=== PATIENT | female | born 1965 | race Caucasian/White ===

== ENCOUNTER 2016-11-08 19:06 | Emergency (ER) | payer OTHER ==
[~2016-11-08] VITALS: Ht 165.1 cm; Wt 106.6 kg
[~2016-11-08 19:06] MED LIST: FIORICET 325 MG1 TAB PO; LABETALOL HYDR100 MG PO
--- NOTE | 2016-11-08 19:45 | ED GI/GU/ABDOMINAL COMPLAINT ---
History of Present Illness General Chief Complaint: General Adult Stated Complaint: PT HAS PAIN NEAR BELLY BUTTON AREA Source: patient Exam Limitations: no limitations Vital Signs & Intake/Output Vital Signs & Intake/Output Vital Signs Date Time Temp Pulse Resp B/P Pulse O2 O2 Flow FiO2 Ox Delivery Rate 11/08 2325 97.3 65 18 124/67 97 Room Air 11/08 2105 97.1 63 18 129/62 96 Room Air 11/08 1913 98.4 79 18 130/85 98 Room Air ED Intake and Output 11/09 0000 11/08 1200 Intake Total Output Total Balance Patient 235 lb Weight Allergies Coded Allergies: MDX - Morphine (MORPHINE) (HEADACHE 02/23/12) Reconcile Medications Acetaminophen/Butalbital/Caf (Fioricet 325 MG-50 MG-40 MG) 1 TAB TAB 1-2 TAB PO Q6H PRN HEADACHE Hydromorphone HCl (Dilaudid) 2 MG TABLET 1 TAB PO BIDP PRN PAIN LABETALOL HCL (Labetalol Hydrochloride) 100 MG TAB 1 TAB PO BID HTN Losartan/Hydrochlorothiazide (Losartan-Hctz 100-25 MG Tab) 100 MG-25 MG TABLET 1 TAB PO DAILY HTN (Reported) Omeprazole 40 MG CAPSULE.DR 1 CAP PO DAILY REFLUX (Reported) Ondansetron HCl (Zofran) 4 MG TABLET 1 TAB PO Q6-8P PRN NAUSEA Triage Note: PT STATES SHE IS HAVING ABD PAIN AROUND HER "BELLY BUTTON" AREA THAT STARTED A COUPLE OF DAYS BUT TODAY IT GOT WORSE. PT DOES HAVE HER APPENDICS. PT DENIES N/V/D LAST BM THIS AM NORMAL FOR HER. Triage Nurses Notes Reviewed? yes ? N Is pt currently ? No Onset: Gradual Duration: getting worse Timing: recent history Severity Numbers: 7 Radiation: no radiation Activities at Onset: none HPI: Patient is a 51-year-old female who presents emergency room with a 3 day history of gradual onset of periumbilical abdominal pain. Patient states that today the pain is more severe and localized to the right lower quadrant. Patient states that lumbar spine movements and palpation make worse. Last bowel movement was within the last 24 hours no blood no melena noted. Patient is able tolerate by mouth with worsening pain. Has nausea without emesis. Denies any fevers but does have chills. Denies any dysuria or hematuria vaginal bleeding vaginal discharge. (WINNIE HERNANDEZ) Past History Travel History Traveled to [place] past 21 day No Medical History Any Pertinent Medical History? see below for history Neurological: NONE EENT: NONE Cardiovascular: hypertension Respiratory: NONE Gastrointestinal: NONE Hepatic: NONE Renal: NONE Musculoskeletal: NONE Psychiatric: NONE Endocrine: NONE Blood Disorders: NONE Cancer(s): NONE History of MRSA: No History of VRE: No History of CDIFF: No Surgical History Surgical History: non-contributory Psychosocial History Who do you live with Family What is your primary language [place] Tobacco Use: Never used ETOH Use: occasional use Illicit Drug Use: denies illicit drug use Family History Hx Contributory? No (WINNIE HERNANDEZ) Review of Systems Review of Systems Constitutional: Reports: no symptoms. EENTM: Reports: no symptoms. Respiratory: Reports: no symptoms. Cardiovascular: Reports: no symptoms. GI: Reports: see HPI, abdominal pain, nausea. Genitourinary: Reports: no symptoms. Musculoskeletal: Reports: no symptoms. Skin: Reports: no symptoms. Neurological/Psychological: Reports: no symptoms. Hematologic/Endocrine: Reports: no symptoms. Immunologic/Allergic: Reports: no symptoms. All Other Systems: Reviewed and Negative (WINNIE HERNANDEZ) Physical Exam Physical Exam General Appearance: no apparent distress, alert, comfortable Gastrointestinal: normal bowel sounds, soft, PERIUMBILICAL AND RIGHT LOWER QUADRANT POINT TENDERNESS NOTED, NO REBOUND TENDERNESS NO PERITONEAL SIGNS Comments: HEENT: Normal EENT exam, Neck: Supple, no lymphadenopathy, normal range of motion without pain or tenderness Back: Nontender, no CVA tenderness. Cardiovascular: Regular rate and rhythms no murmurs rubs or gallops, normal JVP Respiratory: Chest nontender. No respiratory distress.breath sounds clear to auscultation bilaterally Extremity: No edema, no calf tenderness to palpation, normal and equal pulses. Neuro: Alert oriented x3, motor sensory normal, Skin: No appreciable rash on exposed skin, skin is warm and dry. Psych: Mood and affect is normal, memory and judgment is normal. Core Measures ACS in differential dx? No Severe Sepsis Present: No Septic Shock Present: No (WINNIE HERNANDEZ) Progress Differential Diagnosis: AAA, AMI, appendicitis, biliary colic, bowel obstruction , colon cancer, cholecystitis, diverticulitis, ectopic , endometritis, esophageal varices, gastritis, hepatitis, hernia, hemorrhoids, ischemic bowel, inflamm bowel dis, intrauterine , kidney stone, Bri-Haritha tear, ovarian cyst, ovarian torsion, pancreatitis, PID/cervicitis, peptic ulcer, PUD/ GERD, perforated viscous, SBO, threatened AB, UTI/pyelo Plan of Care: Orders Procedure Date/time Status LIPASE 11/08 1954 Complete LACTIC ACID 11/08 1954 Complete HUMAN BETA HCG SCREEN 11/08 1954 Complete C-REACTIVE PROTEIN 11/08 1954 Complete COMPREHENSIVE METABOLIC PANEL 11/08 1954 Complete CBC WITHOUT DIFFERENTIAL 11/08 1954 Complete AMYLASE 11/08 1954 Complete Laboratory Tests 11/08/16 2255: Lactic Acid Cancelled 11/08/16 2005: Anion Gap 12, Estimated GFR > 60, BUN/Creatinine Ratio 23.8, Glucose 95, Lactic Acid 1.1, Calcium 10.3 H, Total Bilirubin 0.9, AST 31, ALT 56 H, Alkaline Phosphatase 135 H, C-Reactive Prot, Quant < 0.5, Total Protein 7.6, Albumin 4.3 , Globulin 3.3, Albumin/Globulin Ratio 1.3, Amylase < 30 L, Lipase 89, Total Beta HCG NEGATIVE, CBC w Diff NO MAN DIFF REQ, RBC 4.93, MCV 86.5, MCH 29.6, RDW 13.8, MPV 9.4, Gran % 51.0, Lymphocytes % 37.1, Monocytes % 8.2, Eosinophils % 2.8, Basophils % 0.9, Absolute Granulocytes 4.8, Absolute Lymphocytes 3.5 H, Absolute Monocytes 0.8 H, Absolute Eosinophils 0.3, Absolute Basophils 0.1, PUBS MCHC 34.3 11/08/2016 9:06:11 PM reevaluation the patient, patient states that she had significant resolution of pain and complete resolution of nausea. Patient had no findings of appendicitis however patient did have umbilical hernia suspicion on CT scan. There are no signs at this time of incarceration or strangling hernia. I discussed CT scan results with patient and strongly advised her to not physical exertion herself and to follow-up with surgeon and she will comply. I then placed patient in Trendelenburg and reduced patient's umbilical hernia patient tolerated well. Discussed disposition with Dr. KELLY who agrees (BASIL CARLTON,WINNIE) Diagnostic Imaging: Viewed by Me: CT Scan. Radiology Impression: acute abnormality Initial ED EKG: none Comments: PATIENT: EDGARD MENDOSA PRESENT AGE: 51 PATIENT ACCOUNT NO: [id number] : 67 LOCATION: [facility] ORDERING PHYSICIAN: WINNIE CARLTON SERVICE DATE: 11/08/16 EXAM TYPE: CAT - CT ABD & PELVIS W IV CONTRAST CT ABDOMEN AND PELVIS WITH CONTRAST CLINICAL INFORMATION: Periumbilical pain to rule out hernia or appendicitis. COMPARISON: Previous abdominal studies cannot be retrieved at the time of dictation. TECHNIQUE: Multidetector volumetric imaging was performed of the abdomen and pelvis before and after the IV administration of 95 mL of Optiray 320 intravenous contrast. Sagittal and coronal reformatted images were obtained on the technologist's workstation. FINDINGS: The lung bases are clear. Cholecystectomy changes. There is diffuse hepatic steatosis. No focal liver lesions. The spleen, adrenal glands, and pancreas are normal. The kidneys exhibit symmetric nephrograms without evidence of hydronephrosis or nephrolithiasis. No focal renal lesions. The large and small bowel are normal in caliber without evidence of mechanical obstruction. No focal inflammatory changes adjacent to the large or the small bowel. The appendix is normal. There is no free air and there is no intra-abdominal free fluid. No mesenteric or retroperitoneal adenopathy. The pelvic viscera are normal. No pelvic adenopathy. No free fluid within the pelvis. There are no acute osseous abnormalities. There are postoperative changes following laminectomy and posterior instrumented lumbar interbody fusion at L4-L5. There is a small fat-containing umbilical hernia and there is mild nonspecific stranding of the fat within the hernia sac. IMPRESSION: - There is a small fat-containing umbilical hernia and there is mild nonspecific stranding of the fat within the hernia sac. There are no bowel loops within the hernia sac. - The appendix is normal. - Hepatic steatosis. - Cholecystectomy. (BASIL CARLTON,WINNIE) Departure Departure Disposition: HOME OR SELF CARE Condition: Stable Clinical Impression Primary Impression: Umbilical hernia Referrals: CESAR MUNIZ,GAYATHRI Elizabeth (PCP/Family) BRAVO MUNIZ,ALETHEA Balbuena Additional Instructions: As discussed please do not physically exerting YOURSELF or lift heavy objects as this may worsen your symptoms. Begin the prescription of Dilaudid for pain. Begin a prescription of Zofran for future nausea. Tomorrow first thing follow- up with surgeon Dr. Delgado for further evaluation treatment. If symptoms worsen or if YOU develop any new concerning symptom return to emergency room immediately. Departure Forms: Customer Survey General Discharge Information Prescriptions: Current Visit Scripts Hydromorphone HCl (Dilaudid) 1 TAB PO BIDP PRN PAIN #8 TAB Ondansetron HCl (Zofran) 1 TAB PO Q6-8P PRN NAUSEA #15 TAB (WINNIE HERNANDEZ) PA/HUMAN RESOURCES DESIGNATE Co-Sign Statement Statement: ED Attending supervision documentation- [] I saw and evaluated the patient. I have also reviewed all the pertinent lab results and diagnostic results. I agree with the findings and the plan of care as documented in the PA's/HUMAN RESOURCES DESIGNATE's documentation. [X] I have reviewed the ED Record and agree with the PA's/HUMAN RESOURCES DESIGNATE's documentation. [] Additions or exceptions (if any) to the PAs/HUMAN RESOURCES DESIGNATE's note and plan are summarized below: [] (ROBIN MUNIZ,RAHUL)
[2016-11-08] MEDS ORDERED: LOSARTAN-HCTZ1 EAC2 PO (20:07)
[2016-11-08] MEDS ORDERED: OMEPRAZOLE40 M1 PO (20:08)
[2016-11-08 20:23] LABS: ABSOLUTE BASOPHIL COUNT 0.1 /CUMM (0.0-0.2); ABSOLUTE EOSINOPHIL COUNT 0.3 /CUMM (0.0-0.7); ABSOLUTE GRANULOCYTE CT 4.8 /CUMM (1.4-6.5); ABSOLUTE LYMPH COUNT 3.5 /CUMM (1.2-3.4); ABSOLUTE MONOCYTE COUNT 0.8 /CUMM (0.10-0.60); BASOPHIL % 0.9 % (0.0-2.0); EOSINOPHIL % 2.8 % (0-5); HEMATOCRIT 42.6 % (37-47); MEAN CORPUSCULAR HGB 29.6 PG (27.0-31.0); MEAN CORPUSCULAR HGB CONC 34.3 G/DL (33.0-37.0); MEAN CORPUSCULAR VOLUME 86.5 FL (81.0-99.0); MEAN PLATELET VOLUME 9.4 FL (7.4-10.4); PLATELET COUNT 254 /CUMM (130-400); RBC DISTRIBUTION WIDTH 13.8 % (11.5-14.5); RED BLOOD CELL CT 4.93 /CUMM (4.20-5.40); WHITE BLOOD CELL COUNT 9.4 /CUMM (4.8-10.8)
--- NOTE | 2016-11-08 22:48 | CT SCAN REPORT ---
CT ABDOMEN AND PELVIS WITH CONTRAST CLINICAL INFORMATION: Periumbilical pain to rule out hernia or appendicitis. COMPARISON: Previous abdominal studies cannot be retrieved at the time of dictation. TECHNIQUE: Multidetector volumetric imaging was performed of the abdomen and pelvis before and after the IV administration of 95 mL of Optiray 320 intravenous contrast. Sagittal and coronal reformatted images were obtained on the technologist's workstation. FINDINGS: The lung bases are clear. Cholecystectomy changes. There is diffuse hepatic steatosis. No focal liver lesions. The spleen, adrenal glands, and pancreas are normal. The kidneys exhibit symmetric nephrograms without evidence of hydronephrosis or nephrolithiasis. No focal renal lesions. The large and small bowel are normal in caliber without evidence of mechanical obstruction. No focal inflammatory changes adjacent to the large or the small bowel. The appendix is normal. There is no free air and there is no intra-abdominal free fluid. No mesenteric or retroperitoneal adenopathy. The pelvic viscera are normal. No pelvic adenopathy. No free fluid within the pelvis. There are no acute osseous abnormalities. There are postoperative changes following laminectomy and posterior instrumented lumbar interbody fusion at L4-L5. There is a small fat-containing umbilical hernia and there is mild nonspecific stranding of the fat within the hernia sac. IMPRESSION: - There is a small fat-containing umbilical hernia and there is mild nonspecific stranding of the fat within the hernia sac. There are no bowel loops within the hernia sac. - The appendix is normal. - Hepatic steatosis. - Cholecystectomy.
[2016-11-08] MEDS ORDERED: DILAUDID2 M1 PO (23:02)
[2016-11-08] MEDS ORDERED: ZOFRAN4 M2 PO (23:02)
[2016-11-08 23:25] VITALS: BP 124/67
== END 2016-11-08 23:27 ==
LOC: ERH 19:06
PROVIDERS: Physician Assistant
DX: K42.9 Umbilical hernia without obstruction or gangrene (principal)
CPT/HCPCS: 74177; 96374; 96375; J2405

== ENCOUNTER → 2016-11-22 | Day surgery (SDC) | payer OTHER ==
[~2016-11-22] VITALS: Ht 165.1 cm; Wt 108.9 kg
[~2016-11-22] MED LIST changes: +DILAUDID2 M1 PO; +LOSARTAN-HCTZ1 EAC2 PO; +OMEPRAZOLE40 M1 PO; +PERCOCET 5-3251 EACH PO; +ZOFRAN4 M2 PO
--- NOTE | 2016-11-22 14:37 | Operative Report ---
Operative/Inv Procedure Report Surgery Date: 11/22/16 Name of Procedure: Laparoscopic incisional hernia repair Pre-Operative Diagnosis: Port site/incisional hernia, umbilicus Post-Operative Diagnosis: Same Estimated Blood Loss: scant Surgeon/Electromechanic: Zak Delgado M.D./Pedro CARLTON Anesthesia: general endotracheal tube Implants: 9 cm Parietex mesh Operative/Procedure Note Note: After consent she is brought to the operating room and laid supine. Gen. anesthesia was obtained and her abdomen was prepped and draped. The skin the left upper quadrant was instructed local anesthesia and a transverse incision made sharply. The peritoneum was percutaneously accessed using a 12 mm optical trocar. Pneumoperitoneum was achieved. No overt bowel injury was identified. 2, 5 mm ports placed in left lower quadrant after local anesthesia was instilled and under direct vision the camera. The abdomen was explored. There were multiple fascial defects at the umbilical port site. The peritoneum superiorly and inferiorly was taken down with electrocautery to expose healthy fascia without overlying fat. The fascial defect measured 2.5-3 cm in greatest dimension. I chose a 9 cm round Parietex mesh to cover the defect. It was marked for orientation and anchored in 4 quadrants using 0 [place]-Sonido sutures. The mesh was hydrated rolled up and placed in the perineal cavity. It was unraveled below the defect. The transfixion sutures then brought up percutaneously in a sequential fashion. There were tied down. The mesh was then circumvention tacked in a double crown fashion using the absorbable tackers. We allowed the gas to escape and remove the ports. The fascia was closed 0 Vicryl suture. Skin incisions closed with 4-0 Vicryl. Steri-Strips and sterile dressing applied. Sponge and needle counts are correct CC: CESAR MUNIZ,GAYATHRI Elizabeth
== END ==
LOC: STS 02:31
DX: K43.2 Incisional hernia without obstruction or gangrene (principal); I10 Essential (primary) hypertension; E66.9 Obesity, unspecified; Z68.39 Body mass index [BMI] 39.0-39.9, adult
CPT/HCPCS: 81025; J0131; J0690; J2250

== ENCOUNTER 2017-02-06 01:33 | Observation (INO) | payer OTHER ==
[~2017-02-06] VITALS: Ht 165.1 cm; Wt 108.9 kg
[~2017-02-06 01:33] MED LIST changes: -PERCOCET 5-3251 EACH PO
--- NOTE | 2017-02-06 16:59 | Admission Core Measures ---
Admission Lab Results I reviewed the following labs: Laboratory Tests 02/06 0830 Urines Urine Test NEGATIVE Admission Meds I reviewed the following Meds: Current Medications Sig/Clement Start time Last Medication Dose Stop Time Status Admin Cefazolin Sodium 1,000 MG ONCE 02/06 0000 NR (Kefzol-Ancef Inj) 02/06 2359 Losartan Potassium 100 MG DAILY 02/07 1000 UNVr (Cozaar) Acute Coronary Syndrome Inclusion Criteria ACS Diagnosis No Inpatient Core Measures LDL Reminder: If No, please order W/I first 24hr of stay Congestive Heart Failure Inclusion Criteria CHF Diagnosis No Cerebrovascular accident Inclusion Criteria CVA/TIA Diagnosis No Inpatient Core Measures Bedside Swallow Eval Reminder: If BSE failed, place ST order Antithrombotic Reminder: Order Antithrombotic Medication by end of day 2 Antithrombotic Reminder: Document Reason Antithrombotic Not ordered by end of day 2 AFIB/Flutter Reminder: If Present, add to problem list AFIB/Flutter Reminder: Order Anticoag Medication for pts with AFIB/Flutter Atherosclerosis Reminder: If Present, add to problem list LDL Reminder: If No, please order W/I first 24hr of stay PT Order Reminder: If No, please order Venous thromboembolism Inpatient Core Measures VTE Risk Factors: Age > 40, Surgery No [facility] VTE prophylaxis d/t No contraindications No VTE Pharm Prophylaxis d/t No contraindications Inclusion Criteria - Per Current guidelines, there needs to be overlap - treatment for the first 5 days of Warfarin therapy. - Parenteral Anticoagulation (IV or SC) needs to be - given along with Warfarin therapy. VTE Diagnosis No VTE Type NONE VTE Confirmed by (Test) NONE Problem List As ranked by this Provider includes Assessment & Plan 1. Thyroid nodule HOME MEDS Home Med List Losartan/Hydrochlorothiazide (Losartan-Hctz 100-25 MG Tab) 100 MG-25 MG TABLET 1 TAB PO DAILY HTN (Reported) Omeprazole 40 MG CAPSULE.DR 1 CAP PO DAILY REFLUX (Reported)
[2017-02-06] MEDS ORDERED: PERCOCET 5-3251 EACH PO (17:00)
--- NOTE | 2017-02-06 17:06 | Patient Discharge Instructions ---
Discharge Instructions General Discharge Information You were seen/treated for: THYROID NODULE You had these procedures: THYROID LOBECTOMY Watch for these problems: SWELLING IN NECK, INABILITY TO SWALLOW, DIFFICULTY BREATHING. INCREASING PAIN DESPITE THE USE OF PAIN MEDICATION. REDNESS, WARMTH AND DRAINAGE FROM INCISION. FEVER >101.5. Do not soak the wound: Yes Other wound care: KEEP WOUND CLEAN AND DRY. Special Instructions: PLEASE CALL DR. BUTTERFIELD'S OFFICE TO SET UP APPOINTMENT TO BE SEEN TOMORROW, FEBRUARY 08, 2017 FOR REMOVAL OF DRAIN. Diet Continue normal diet: Yes Additional DIET Information: PUREE FOOD IF DIFFICULTY SWALLOWING. Activity Full Activity/No Limits: No Activity Self Limited: Yes Pounds, do NOT lift more than: 5 Acute Coronary Syndrome Inclusion Criteria At DC or during hospital stay patient has or had the following: ACS DIAGNOSIS No Discharge Core Measures Meds if any: Prescribed or Continued at Discharge Meds if any: NOT Prescribed or Continued at Discharge Congestive Heart Failure Inclusion Criteria At DC or during hospital stay patient has or had the following: CHF DIAGNOSIS No Discharge Core Measures Meds if any: Prescribed or Continued at Discharge Meds if any: NOT Prescribed or Continued at Discharge Cerebrovascular accident Inclusion Criteria At DC or during hospital stay patient has or had the following: CVA/TIA Diagnosis No Discharge Core Measures Meds if any: Prescribed or Continued at Discharge Meds if any: NOT Prescribed or Continued at Discharge Venous thromboembolism Inclusion Criteria VTE Diagnosis No VTE Type NONE VTE Confirmed by (Test) NONE Discharge Core Measures - Per Current guidelines, there needs to be overlap - treatment for the first 5 days of Warfarin therapy. - If discharged on Warfarin prior to 5 days of - overlap therapy, the patient will need to be - assessed for post discharge needs including - *Post discharge parental anticoagulation - *Warfarin and/or parental anticoagulation education - *Follow up date to check INR post discharge At least 5 days overlap therapy as Inpatient No Meds if any: Prescribed or Continued at Discharge Note: Overlap Therapy is Warfarin and Anticoagulant Meds if any: NOT Prescribed or Continued at Discharge
[2017-02-06 19:00] VITALS: BP 120/80
--- NOTE | 2017-02-06 20:25 | PN- General Surgery ---
Subjective Subjective: Postop check: Patient is comfortable, tolerating clears, able to swallow without difficulty. No significant hoarseness of voice. Mild to moderate pain that is controlled with pain medication. No fever no flulike illness no difficulty swallowing. No shortness of breath, no stridor. No complaints. Objective Vital Signs and I&Os Vital Signs Date Time Temp Pulse Resp B/P Pulse O2 O2 Flow FiO2 Ox Delivery Rate 02/06 1900 97.7 88 18 120/80 94 Room Air Physical Exam: Well-developed well-nourished no apparent distress. HEENT: Atraumatic, extraocular motion intact Neck: Supple, dry dressing in place, CARY drain in place, small amount of blood noted in the CARY drain approximately 10-15 mL. Minimal swelling at the central and right side of the neck. No tracheal deviation, no significant swelling Voice sounds normal. Swallowing well. Respiratory: No respiratory distress, clear to auscultation, no stridor Heart: Regular rate and rhythm no murmur Extremities: No edema, no calf pain Neuro: Alert and oriented x3 Psych: Mood affect normal, normal memory normal judgment. Skin: Warm and dry, no rash on exposed skin Assessment/Plan Assessment/Plan Postop day 0 status post right-sided thyroid lobectomy -Surgically, patient is stable -Advance diet as tolerated -Pain medication as needed -DC CARY drain tomorrow -Heparin subcutaneous for DVT prophylaxis -Ancef for 2 doses for infectious prophylaxis -Out of bed ad zeynep. Core Measures/Miscellaneous Venous Thromboembolism VTE Risk Factors: Age > 40, Surgery VTE Contraindications: No Contraindications VTE Diagnosis: No VTE Type: NONE VTE Confirmed by (Test): NONE Beta Afshin Is Beta Afshin a Home Med? No Antibiotics Is Patient on Antibiotics? Yes If Yes: prophylaxis
[2017-02-06 21:59] VITALS: BP 128/84
[2017-02-07 00:36] VITALS: BP 140/90
[2017-02-07 02:36] VITALS: BP 110/68
[2017-02-07 06:20] VITALS: BP 124/80
--- NOTE | 2017-02-07 07:35 | PN- General Surgery ---
See Addendum Subjective Subjective: Patient states that she had one episode of emesis last approximately 30 minutes after the administration of po pain medication. She was subsequently switched from oxicodone po to dilaudid iv with good effect. Following that episode, she did not report any difficulty swallowing, breathing, or speaking. She denies chest pain, shortness of breath and difficulty breathing. She has been oob. She is tolerating clear liquids this am. Objective Vital Signs and I&Os Vital Signs Date Time Temp Pulse Resp B/P B/P Pulse O2 O2 Flow FiO2 Mean Ox Delivery Rate 02/07 0620 98.2 74 20 124/80 92 Room Air 02/07 0236 98.2 87 20 110/68 93 Room Air 02/07 0036 98.2 87 20 140/90 92 Room Air 02/06 2159 97.8 82 20 128/84 95 02/06 1900 97.7 88 18 120/80 94 Room Air Intake & Output 02/07 0800 02/07 0000 02/06 1600 02/06 0800 02/06 0000 02/05 1600 Intake Total 675 Output Total 505 Balance 170 Intake, IV 375 Intake, Oral 300 Output, 5 Drainage Output, Urine 500 Patient 240 lb Weight Physical Exam: General: Alert and oriented x3, no acute distress Voice clear, swallow intact Cardiac: RRR, s1s2 Pulm: Normal respiratory effort, cta bilaterally Abdomen: Non-tender, non distended Extremities: Moves all extremities, distal sensation intact. Skin warm and well perfused. Bilateral calves soft and non-tender Surgical site: Dressing dry and intact. Minimal swelling noted. SCOTT drain with 20cc of sanguinous output in 8 hour shift overnight. Assessment/Plan Assessment/Plan This is a 51 year old female, POD 1, s/p right thyroid lobectomy for nodule. PMH significant for htn. -clear liquid diet for breakfast, consider advance to regular/soft mechanical for lunch -OOB -Strict I/O, watch SCOTT output -D/C iv dilaudid, IV offirmev, give po pain medication today (percocet) -DVT ppx to include sub q heparin to start today -Will discuss drain output with Dr. Rodriguez, will leave SCOTT in for now. -Possible d/c to home today pending pain control, diet tolerance and scott output Core Measures/Miscellaneous Venous Thromboembolism VTE Risk Factors: Age > 40, Surgery VTE Contraindications: No Contraindications VTE Diagnosis: No VTE Type: NONE VTE Confirmed by (Test): NONE Beta Afshin Is Beta Afshin a Home Med? No Antibiotics Is Patient on Antibiotics? Yes If Yes: prophylaxis
[2017-02-07 08:09] LABS: ABSOLUTE BASOPHIL COUNT 0 /CUMM (0.0-0.2); ABSOLUTE EOSINOPHIL COUNT 0.2 /CUMM (0.0-0.7); ABSOLUTE GRANULOCYTE CT 4.7 /CUMM (1.4-6.5); ABSOLUTE LYMPH COUNT 2.5 /CUMM (1.2-3.4); ABSOLUTE MONOCYTE COUNT 0.8 /CUMM (0.10-0.60); BASOPHIL % 0.5 % (0.0-2.0); EOSINOPHIL % 1.9 % (0-5); GRANULOCYTE % 57.8 % (42.2-75.2); MEAN CORPUSCULAR HGB 29.1 PG (27.0-31.0); MEAN CORPUSCULAR VOLUME 85.6 FL (81.0-99.0); MEAN PLATELET VOLUME 10.1 FL (7.4-10.4); PLATELET COUNT 197 /CUMM (130-400); RED BLOOD CELL CT 4.44 /CUMM (4.20-5.40); WHITE BLOOD CELL COUNT 8.1 /CUMM (4.8-10.8)
[2017-02-07 10:18] VITALS: BP 120/60
--- NOTE | 2017-02-07 13:27 | Operative Report ---
Operative/Inv Procedure Report Surgery Date: 02/06/17 Name of Procedure: Right thyroid lobe and isthmusectomy Pre-Operative Diagnosis: Hurthle cell neoplasm Post-Operative Diagnosis: Same Estimated Blood Loss: scant Surgeon/Assurance Officer: GREER MUNIZ,CLARISSE CARLTON Anesthesia: general endotracheal tube Operative/Procedure Note Note: Patient was placed on the OR table supine, over the thyroid bar, after successful induction of general anesthesia and the timeouts, and setting up the NIMS electrodes for monitoring, the patient's neck from chin to chest were clipped prepped and draped in the usual sterile fashion. We had already marked a skin crease near the cricoid in Same Day, and then infiltrated local anesthetic and then made this incision with a 15 blade, extending between the medial borders of the sternocleidomastoid muscles. The incision was deepened through the subcutaneous fat and subplatysmal flaps, preserving the underlying anterior jugular veins, were made superiorly to the thyroid cartilage and inferiorly not quite to the sternal notch. The midline was identified between the strap muscles and opened vertically and then using an Allis clamp first, the sternohyoid and then the sternal thyroid muscles were and then retracted laterally off the thyroid towards the carotid sheath. At that deep lateral extent we proceeded superiorly to mobilize the upper pole, all with the Harmonic scalpel, care was taken to disconnect the entire tip of the upper pole requiring dissection both medial and lateral, the medial window was important to preserve the motor branch of the superior laryngeal, also posteriorly, care was taken to preserve both the blood supply and the superior parathyroid gland as it was swept off the posterior capsule. Once the branches of the superior thyroid vessels were divided, the upper pole was mobilized and brought down and out into the incision. We then mobilized laterally at the middle of the lobe and then inferiorly around the inferior pole and back here there was the inferior parathyroid gland which was also preserved. Then we turned our dissection directly over the trachea to find the isthmus which was then divided. Once the isthmus was divided, we got a better sense of Grider's ligament which we left for last, where branches of the inferior thyroid vessels and the recurrent laryngeal nerve come close. We were able to get the dissection just inside the capsule and disconnected the lobe completely from the lateral aspect of the trachea without getting too close to the nerve. This nerve was identified and preserved. Next we checked for hemostasis no sutures or Surgicel were needed, we placed a 10 Arabic round Johan-Flores drain into the area through a separate stab incision, secured to the skin with a nylon suture, and then closed by first reapproximating the strap muscles over the trachea in the middle paying care not to injure those jugular veins on either side, and then the platysma was reapproximated with a running 3-0 Vicryl suture as well, then the skin was reapproximated with a running subcuticular 4-0 Biosyn suture followed by Mastisol Steri-Strips Telfa and Tegaderm. Estimated blood loss was minimal lap and sponge counts were correct wound expectancy was clean, IV fluids crystalloid , complications none, patient tolerated the procedure well was awakened extubated and returned to the recovery room in satisfactory condition where once more awake, was able to phonate but it was weak.
[2017-02-07 14:07] VITALS: BP 138/80
== END 2017-02-07 17:30 ==
LOC: ENRESERVTM → ENRESERVDT → STS 01:33 → 2NA 10:49 → PACUH 10:49 → 2NA 18:28 → ENPENDDIS 02-07 16:55 → 2NA 02-07 17:30
PROVIDERS: Nurse Practitioner; ADMIT Surgery
DX: C73 Malignant neoplasm of thyroid gland (principal); I10 Essential (primary) hypertension; E83.119 Hemochromatosis, unspecified; K92.9 Disease of digestive system, unspecified; E66.9 Obesity, unspecified
CPT/HCPCS: 6030; 81025; 82436; 88307; 96372; 96374; 96375; C9399; G0378; J0131; J0690; J1170; J1630; J1644; J2405; J3490